=== PATIENT | female | born 2005 | race Hispanic/Latino ===

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

== ENCOUNTER 2024-02-13 23:00 | Emergency (ER) | payer SELFPAY ==
[2024-02-13 23:04] VITALS: BP 110/58; PULSE 83; RESP 18; TEMP 36.7; O2SAT 100
== END 2024-02-14 03:57 | disposition left against medical advice (07) ==
LOC: ANHED 02-14 02:42
DX: R10.30 Lower abdominal pain, unspecified (principal); M54.9 Dorsalgia, unspecified; R11.0 Nausea
CPT/HCPCS: 99199